=== PATIENT | female | born 2000 | race Caucasian/White ===

== ENCOUNTER 2024-12-02 14:39 | Outpatient (REF) | payer BC, SELFPAY ==
--- NOTE | 2024-12-02 14:47 | ECG_ITS ---
Test Reason : QTC CHECK Blood Pressure : */* mmHG Vent. Rate : 76 BPM Atrial Rate : 76 BPM P-R Int : 118 ms QRS Dur : 86 ms QT Int : 382 ms P-R-T Axes : 65 67 37 degrees QTcB Int : 429 ms Normal sinus rhythm Normal ECG No previous ECGs available Referred By: Princess Patton Electronically Signed By: FELIX MOYER
[2024-12-02 15:35] LABS: MANUAL DIFF FLAG NO
[2024-12-02 15:49] LABS: Ammonia 48 umol/L (13-55)
[2024-12-02 16:06] LABS: Basophils Absolute Auto 0.1 X10*3/uL (0.0-0.2); Basophils Percent Auto 0.6 % (0-2); Eosinophils Absolute Auto 0.2 X10*3/uL (0.0-0.4); Eosinophils Percent Auto 1.9 % (0-4); Hematocrit 40.2 % (37.0-47.0); Hemoglobin 13.2 g/dl (12.0-16.0); Imm Gran Abs Auto 0.02 X10*3/uL (0.00-0.03); Imm Gran Pct Auto 0.2 % (0.0-0.4); Lymphocytes Absolute Auto 2.6 X10*3/uL (1.2-4.9); Lymphocytes Percent Auto 30.9 % (20-40); Mean Corpuscular HGB Conc 32.8 g/dl (31.0-35.0); Mean Corpuscular Hemoglobin 31.3 pg (27.0-33.0); Mean Corpuscular Volume 95.3 fL (80.0-98.0); Mean Platelet Volume 10.1 fL (9.4-12.3); Monocytes Absolute Auto 0.6 X10*3/uL (0.1-1.2); Neutrophils Absolute Auto 4.9 x10*3/uL (2.0-8.3); Neutrophils Percent Auto 59.4 % (45-73); Platelet Count 276 X10*3/uL (160-400); Red Blood Count 4.22 X10*6/uL (4.20-5.50); Red Cell Distribution Width 11.9 % (11.0-16.0); White Blood Count 8.3 X10*3/uL (4.8-10.8)
[2024-12-02 16:39] LABS: Anion Gap 13 (12-20)
[2024-12-02 16:43] LABS: Estimated Average Glucose 100 mg/dL; Hemoglobin A1C 120.6673 umol/L; Hemoglobin A1c % 5.1 % (<6.0)
[2024-12-02 16:44] LABS: Alanine Aminotransferase 15 U/L (0-31); Albumin Level 4.4 g/dL (3.5-5.0); Aspartate Amino Transferase 21 U/L (5-31); Bilirubin Total 0.2 mg/dL (0.0-1.0); Blood Urea Nitrogen 23 mg/dL (9-16); C Reactive Protein 0.37 mg/dL (< or = 0.50); Calcium 9.5 mg/dL (8.4-10.2); Carbon Dioxide 22 mmol/L (22-29); Chloride 107 mmol/L (96-108); Estimated Glomerular Filt Rate > 60; Glucose Random 94 mg/dL (60-115); Iron 68 mcg/dL (30-160); Percent Iron Saturation 26 % (15-50); Phosphorus 3.4 mg/dL (2.7-4.5); Sodium 138 mmol/L (135-145); Total Iron Binding Capacity 265 mcg/dL (228-428); Total Protein 7.4 g/dL (6.5-8.0); Unsaturated Iron Binding 197 ug/dL
[2024-12-02 16:51] LABS: Alkaline Phosphatase 52 U/L (39-117)
[2024-12-02 16:54] LABS: Ferritin 44 ng/mL (10-122); Free T4 (Free Thyroxine) 0.99 ng/dL (0.71-1.85); Thyroid Stimulating Hormone 0.75 uIU/mL (0.32-4.0); Vitamin D 25-OH Total 52.7 ng/mL (>30)
[2024-12-02 17:11] LABS: Erythrocyte Sedimentation Rate 14 MM/HR (0-20)
[2024-12-02 17:12] LABS: Folate 14.3 ng/mL (> or = 4.0); Vitamin B12 506 pg/mL (200-900)
--- OUTSIDE RECORDS SUMMARY | 2024-12-02 17:23 | XMS_ITS | Data Portability ---
Author Organization [facility] [id number] Address [address] [place] [address] Assessment No assessment recorded. Plan of Treatment Reminders Order Date Submit Date Provider Last Modified By Organization Details Last Modified Time Details Appointments None record ed. Lab None record ed. Referral None record ed. Procedures None record ed. Surgeries None record ed. Imaging None record ed. Medication Orders None record ed. Patient TargetsNo targets recorded. Patient InstructionsNo instructions recorded. Reason for Referral None Reported. Medical Equipment None Reported. Medications Name Sig Start Date Stop Date Status Note LastModified by Organization Details LastModified Time benzonatate 100 mg capsule active Not Available Not Availab le Not Available fluoxetine 10 mg capsule active Not Available Not Available N ot Available fluoxetine 20 mg capsule active Not Available Not Available N ot Available Vitals None Recorded Social History None recorded. Functional Status None recorded. Mental Status None recorded. Family History Nothing Reported. Medical History No medical history recorded. Gynecological HistoryNo gynecological history recorded. Obstetrics History GPAL:G 0 P 0 0 0 0 Past Encounters Encounter ID Performer Location Encounter Start Date Encounter Closed Date Diagnosis/Indication Diagnosis SNOMED-CT Code Diagnosis ICD10 Code Diagnosis Note [id number] [address] [place] [address] 02/06/2020 08:15:45 02/06/2020 08:44:14 [id number] [address] [place] [address] 02/18/2020 17:49:42 02/18/2020 18:10:29 [id number] [address] [place] [address] 02/03/2020 11:06:53 02/03/2020 12:10:25 Health Concerns Section Related Observation LastModified by Organization Detai ls LastModified Time None Recorded Concern Status LastModified by Organization Details LastModified Time None Recorded Advance Directives Directive None Recorded Payers Encounter Date Sequence Insurance Name Policy Number Policy Little Covered Member ID Little Member ID Guarantor Name 02/06/2020 1 [place]: [facility] [id number] Nga Burgess [id number] [facility] Episode No OBEpisode recorded.
--- OUTSIDE RECORDS SUMMARY | 2024-12-02 17:23 | XMS_ITS ---
Author Name [facility] Organization Unknown Encounters Encounter Type Encounter Reason Primary Diagnosis Location Date Ambulatory [facility] 01/17/2023 Care Team Organization Name Specialty Phone Email Start Date End Da te [facility] NO PCP Primary Care 01/17/2023 01/17/2023 [facility] PCP,No Primary Care 01/17/2023
[2024-12-03 03:33] LABS: Syphilis Screen Nonreactive (Nonreactive)
[2024-12-03 03:53] LABS: HBsAGNum1 0.47 S/CO (0.00-0.99); Hepatitis B Core Antibody Nonreactive (Nonreactive); Hepatitis B Surface Antigen Negative (Negative); ~HepC Num1 0.09 S/CO (0.00-0.79); ~Hepatitis C Antibody Nonreactive (Nonreactive)
[2024-12-03 04:38] LABS: HBS Num2 12.91 mIU/mL (0-7.99); HBS Num3 12.66 mIU/mL (0-7.99); ~Hepatitis B Surface Antibody REACTIVE (Nonreactive)
[2024-12-03 05:42] LABS: Triiodothyronine T3 Free 2.7 pg/mL (2.3-4.2)
[2024-12-03 05:58] LABS: Lyme Abs Screen <0.90 index
[2024-12-03 19:40] LABS: Homocysteine 6.5 umol/L (<10.4)
[2024-12-03 23:28] LABS: Thyroglobulin Antibodies <1 IU/mL (< or = 1); Thyroid Peroxidase Antibodies 4 IU/mL (<9)
[2024-12-06 14:58] LABS: Vitamin B6 62.8 ng/mL (2.1-21.7)
[2024-12-08 11:34] LABS: ANA Pattern 2 Nuclear, Speckled; Anti Nuclear Antibody Screen POSITIVE (NEGATIVE)
[2024-12-09 06:19] LABS: Vitamin B1 29 nmol/L (8-30)
[2024-12-10 00:49] LABS: Methylmalonic Acid 156 nmol/L (55-335)
[2024-12-10 13:08] LABS: Triiodothyronine T3 Reverse 14 ng/dL (8-25)
== END 2024-12-02 14:40 | disposition home or self-care (01) ==
LOC: HO.LAB 14:39
PROVIDERS: PCP Internal Medicine; Visit Provider Psychiatry & Neurology Psychiatry
DX: F39 Unspecified mood [affective] disorder (principal); E78.00 Pure hypercholesterolemia, unspecified; E07.81 Sick-euthyroid syndrome; Z13.1 Encounter for screening for diabetes mellitus
CPT/HCPCS: 36415; 80053; 82140; 82306; 82607; 82728; 82746; 83036; 83090; 83540; 83735; 83789; 83921; 83970; 84100; 84207; 84425; 84439; 84443; 84481; 84482; 85025; 85652; 86038; 86039; 86140; 86376; 86617; 86618; 86704; 86706; 86780; 86800; 86803; 87340; 93005

== ENCOUNTER → 2024-12-02 14:47 | Outpatient (BNV) | payer BC, SELFPAY | PROVIDERS: PCP Internal Medicine; Visit Provider Internal Medicine | DX: Z13.6 Encounter for screening for cardiovascular disorders (principal) | CPT/HCPCS: 93010 ==

== ENCOUNTER 2024-12-03 08:15 | Outpatient (RCR) | payer BC, SELFPAY ==
[2024-11-23 11:59] VITALS: BP 108/70; PULSE 68; TEMP 36.7
[2024-11-23 12:02] VITALS: BMI 26.2
--- NOTE | 2024-11-23 13:22 | PC.ADMIT ---
Patient is a 24 year old single female who self referred to [facility] on the advise of the therapist d/t increased depression and anxiety when she started a new job in March and ended up resigning in September. 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 She stated that she has a history of anxiety and depression that has been manageable however the stress of changing to a new specialty increased anxiety and depression sxs. 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 Identifies supports are, Partner, mom, good friends, therapist . She is living with her with mother and sister. Patient is alert and oriented x4. She is calm and cooperative. She presented with depressed mood and anxious affect. Dark circles appear underneath bilateral eyes. Regarding SI patient stated, Not now. The past few weeks or months sometimes I get passive suicidal thoughts they come and go. I don't have any plans . She was given a copy of her safety plan if needed. Medications reconciled with patient and patient's pharmacy. She reports taking medications as prescribed.
--- NOTE | 2024-11-24 09:03 | HO.PS.ADMBH ---
HPI Date of Service: 11/23/24 Chief Complaint: anxiety,depression Sources of Information: patient interviewed, chart reviewed and crisis/core team assessment reviewed HPI Narrative: This is the 1st PHP admission for this 24-year-old female who reports having struggled with depression and anxiety for the past several years on and off. In more recent months she has been experiencing ?a lot? of intermittent SI thoughts some of which she attributes to the stress of being in a new job where she is experiencing a lot of performance anxiety and is a stressful work environment. 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 ?things were getting bad... Things were even bad prior to resigning. I tried putting my best foot forward but it was a real struggle at work. Anxiety had been really high but since resigning it seems the depression has gotten worse? she notes historically she tends to fluctuate and flip-flops between depression and anxiety. She has had a number of medication changes in the past few months. And isn't on a combination of citalopram and hydroxyzine. She is noting that her mood ?it is been pretty good for the past couple of days? some of this she attributes to taking weekend trip to [place] with her significant other which she feels was helpful in a much needed break from her stress. She reports her depression severity at a 0 to 2/10 (10 being most severe), rates cognitive anxiety at a 3/10 in severity and somatic anxiety at a 1/10 in severity. He currently reports no SI says it was about a week and a half ago was her last passive SI thought Past Psychiatric History: Denies history of IPLOC, PHP, respite, detox/rehab admissions SA: Denies SIB: Denies Therapist: Jen Byrne Psych provider: Ricky Oconnell MD, PhD CURRENT MEDICATIONS: Citalopram 40 mg daily Hydroxyzine 25 mg q.i.d. p.r.n. 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 Denies any surgical history Denies any seizures Denies any concussion or TBI Nulligravid LMP: 10/25 Height 5 ft 1 in Weight 136 lb Allergies: COVID booster Social History: Lives with mom and sister She is a triplet and has 1 sister and 2 brothers her parents are She reports her partner is female She is currently newly employed Graduated high school Attended [employer] [employer] and earned nursing degree Substance History: Alcohol use socially last use over a month ago Denies nicotine, marijuana, any other illicit substance use Trauma History: Denies Diagnostics Vital Signs (24Hr): BMI result Body Mass Index 26.2 Meds/Allergies Meds Home Medications ?Medication ?Instructions ?Recorded ?Confirmed ?Type cholecalciferol (vitamin D3) 50 50 mcg PO DAILY 11/23/24 11/23/24 History mcg (2,000 unit) capsule citalopram 40 mg tablet 40 mg PO DAILY 11/23/24 11/23/24 History hydroxyzine HCl 25 mg tablet 25 mg PO QID PRN anxiety 11/23/24 11/23/24 History Allergies Allergies Allergy/AdvReac Type Severity Reaction Status Date / Time COVID-19 (SARS-CoV-2) Allergy Hives Verified 11/23/24 11:58 vaccine, jermain Mental Status Exam Mental Status Exam Narrative: Alert, oriented, in no acute distress. Calm, cooperative, engaged. No psychomotor agitation or neurovegetative retardation. Eye contact maintained. Mood anxious, affect variable, mood congruent. Speech normal. Thought process linear, coherent. Thought content related to stressors, denies any hopelessness or SI. Denies any aggressive ideation or HI. No paranoia or delusional content elicited. No evidence of psychosis. Insight and judgment - fair but adequate. Assessment & Plan Assessment & Plan (1) MDD (major depressive disorder), recurrent episode, moderate: Status: Acute Code(s): F33.1 - Major depressive disorder, recurrent, moderate (2) CHEMA (generalized anxiety disorder): Status: Acute Code(s): F41.1 - Generalized anxiety disorder Plan Admit to [facility] VS reviewed: afebrile, BP 108/70;?68 bpm continue other regular medications? Routine lab work ordered as indicated EKG, routine for baseline QTc for medication considerations as indicated UDS as indicated MassPat reviewed Continue to monitor as per protocol Patient educated on: diagnosis and medication risk/benefits Informed Consent: understands Reason for continued partial hosp. stay Substantial Risk for: inability to function and med/psych decompensation Certification I certify that partial hospital treatment is medically necessary due to the symptoms and problems resulting from the patient's mental illness and the failure to treat the patient at the partial hospital level of care would likely result in the patient requiring inpatient psychiatric care which could not be prevented at a less intensive level of care. Time Spent With Patient Time: Total time managing care of this patient today _60___ minutes.
--- NOTE | 2024-11-25 15:27 | HO.PHP ---
Clients case was opened and reviewed in teams today.
--- NOTE | 2024-12-02 23:58 | P.PNPSP_ITS ---
Subjective Subjective Date of Service: 12/02/24 Reason For Visit: anxiety,depression Interim History: Patient seen for follow-up. Experiencing a lot of anxiety as she anticipates returning to work on Friday. She explains that she has been struggling and work environments particularly wh en overstimulated or other multiple competing demands put on her. She struggles with time management, task management, prioritization and other executive dysfunction. She was given an ASR rest of fill out today and was notably struggling with it saying it was hard to concentrate on understanding the questions and says she is generally a slow reader requiring more time than her peers to read but nonetheless has been able to manage school. She has been told by supervisors that she has the knowledge and she just needs to get better at applying it nonetheless she continues to under perform at work which is where her source of anxiety stems from. She has no history of ADHD testing or diagnosis. She is open to treatment at this time. She anticipates discharge tomorrow and is unable to extend her stay due to work obligations. Mental Status Exam Mental Status Exam Narrative: Alert, oriented, in no acute distress. Calm, cooperative. Mood stable, affect appropriate. Speech normal. Thought process linear, coherent, more goal- directed. Thought content related to stressors, future-oriented, denies any helplessness, hopelessness or SI.? No aggressive ideation or HI. No paranoia or delusional content elicited. No evidence of psychosis. Insight and judgment good. Diagnostics Vital Signs (24Hr): BMI result Body Mass Index 26.2 Assessment & Plan Assessment & Plan (1) MDD (major depressive disorder), recurrent episode, moderate: Status: Acute Code(s): F33.1 - Major depressive disorder, recurrent, moderate (2) CHEMA (generalized anxiety disorder): Status: Acute Code(s): F41.1 - Generalized anxiety disorder Plan Continue PHP start Concerta 18 mg qam may take prn MPH 2.5-5 mg qd qrn focus/attention cotninue Celexa 40 mg qd start guanfacine ER 1 mg qam continue hydroxyzine 25 mg PRN (not utilized by patient often) Pending labwork continue to monitor Patient educated on: diagnosis and medication risk/benefits Informed Consent: understands Reason for contiued partial hosp. stay Substantial Risk for: med/psych decompensation Certification I certify that partial hospital treatment is medically necessary due to the symptoms and problems resulting from the patient's mental illness and the failure to treat the patient at the partial hospital level of care would likely result in the patient requiring inpatient psychiatric care which could not be prevented at a less intensive level of care. Total time managing care of this patient today __30__ minutes. Discharge Plan Discharge Attending provider: Princess Patton Medications: New methylphenidate HCl 5 mg tablet 5 mg PO QAM Qty: 20 0RF Rx Instructions: Partial Fill upon patient request. For ADD guanfacine 1 mg tablet extended release 24 hr 1 mg PO DAILY Qty: 20 0RF methylphenidate HCl [Concerta] 18 mg tablet extended release 24hr 18 mg PO QAM Qty: 14 0RF Rx Instructions: Partial Fill upon patient request. methylphenidate HCl [Concerta] 27 mg tablet extended release 24hr 27 mg PO QAM Qty: 14 0RF Rx Instructions: Partial Fill upon patient request. Continued citalopram 40 mg tablet 40 mg PO DAILY hydroxyzine HCl 25 mg tablet 25 mg PO QID PRN (Reason: anxiety) cholecalciferol (vitamin D3) 50 mcg (2,000 unit) capsule 50 mcg PO DAILY Patient Education: Anxiety (ED), Anxiety (GEN) Print Language: Mosotho
--- NOTE | 2024-12-03 12:17 | HO.PHPPROGNO ---
Subjective Subjective Date of Service: 12/03/24 Reason For Visit: anxiety,depression Interim History: Patient seen for follow-up, anticipating discharge at the end of program today.? I'm just nervous about going back to work. But looking forward to new job . Reports no acute issues or concerns. Medication compliant, medications well-tolerated. Denies any adverse effects.? Mood is stable.? Denies any hopelessness or SI. Denies thoughts of harming self or others at this time. Denies any aggressive ideation or HI. Denies any paranoia or AH or VH. Sleep, appetite, energy stable. Mental Status Exam Mental Status Exam Narrative: Alert, oriented, in no acute distress. Calm, cooperative. Mood stable, affect appropriate. Speech normal. Thought process linear, coherent, more goal-directed. Thought content related to stressors, future-oriented, denies any helplessness, hopelessness or SI.? No aggressive ideation or HI. No paranoia or delusional content elicited. No evidence of psychosis. Insight and judgment good. Diagnostics Vital Signs (24Hr): BMI result Body Mass Index 26.2 Assessment & Plan Assessment & Plan (1) MDD (major depressive disorder), recurrent episode, moderate: Status: Acute Code(s): F33.1 - Major depressive disorder, recurrent, moderate (2) CHEMA (generalized anxiety disorder): Status: Acute Code(s): F41.1 - Generalized anxiety disorder Plan [facility]charge from [facility] Continue regular medications Concerta up to 27 mg qam may take prn MPH 2.5-5 mg qd qrn focus/attention Celexa 40 mg qd guanfacine ER 1 mg qam hydroxyzine 25 mg PRN (not utilized by patient often) Pending labwork Refills sent to pharmacy Will defer further medication management to outpatient provider *Safety plan reviewed *Discharge diagnoses, treatment course, discharge plan have been reviewed with patient (including medication regime, medication management, potential side effects) as well as treatment rationale were also revisited *Discharge paperwork signed and given to patient, copy sent for scanning to chart Patient educated on: diagnosis, medication risk/benefits and medical condition Informed Consent: understands Reason for contiued partial hosp. stay Substantial Risk for: stable for discharge Certification I certify that partial hospital treatment is medically necessary due to the symptoms and problems resulting from the patient's mental illness and the failure to treat the patient at the partial hospital level of care would likely result in the patient requiring inpatient psychiatric care which could not be prevented at a less intensive level of care. Total time managing care of this patient today __30__ minutes. Discharge Plan Discharge Attending provider: Princess Patton Medications: New methylphenidate HCl 5 mg tablet 5 mg PO QAM Qty: 20 0RF Rx Instructions: Partial Fill upon patient request. For ADD guanfacine 1 mg tablet extended release 24 hr 1 mg PO DAILY Qty: 20 0RF methylphenidate HCl [Concerta] 18 mg tablet extended release 24hr 18 mg PO QAM Qty: 14 0RF Rx Instructions: Partial Fill upon patient request. methylphenidate HCl [Concerta] 27 mg tablet extended release 24hr 27 mg PO QAM Qty: 14 0RF Rx Instructions: Partial Fill upon patient request. Continued citalopram 40 mg tablet 40 mg PO DAILY hydroxyzine HCl 25 mg tablet 25 mg PO QID PRN (Reason: anxiety) cholecalciferol (vitamin D3) 50 mcg (2,000 unit) capsule 50 mcg PO DAILY Patient Education: Anxiety (ED), Anxiety (GEN) Print Language: Cypriot
== END 2024-12-03 23:59 | disposition home or self-care (01) ==
LOC: HO.PHPA 08:15
PROVIDERS: Visit Provider Psychiatry & Neurology Psychiatry
DX: F33.1 Major depressive disorder, recurrent, moderate (principal); F41.1 Generalized anxiety disorder; Z79.899 Other long term (current) drug therapy
CPT/HCPCS: 90791; 90853